=== PATIENT | male | born 2005 | race Caucasian/White ===

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

== ENCOUNTER 2025-02-12 14:10 | Outpatient (REF) | payer MEDICAID, SELFPAY ==
[2025-02-12 14:36] LABS: Calculated LDL 79 mg/dL (<100); Cholesterol 161 mg/dL (<200); HDL Cholesterol 40 mg/dL (>or=40); TSH 1.27 uIU/mL (0.36-3.74); Triglyceride 212 mg/dL (<150)
[2025-02-13 09:29] LABS: HIV-1/2 Ag & Ab Screen Negative (Negative)
[2025-02-13 09:32] LABS: Hepatitis C Ab w Rflx HCV PCR Negative (Negative)
== END 2025-02-12 14:11 | disposition home or self-care (01) ==
LOC: NCHCN 14:10
PROVIDERS: Visit Provider Student in an Organized Health Care Education/Training Program
DX: L65.9 Nonscarring hair loss, unspecified (principal); Z11.4 Encounter for screening for human immunodeficiency virus [HIV]; Z11.59 Encounter for screening for other viral diseases; Z13.220 Encounter for screening for lipoid disorders
CPT/HCPCS: 80061; 86803; 87389; 84443